=== PATIENT | male | born 1940 | race Caucasian/White ===

== ENCOUNTER 2018-08-07 08:28 | Emergency (ER) | payer MEDICARE, OTHER ==
[2018-08-07 08:47] VITALS: RESP 18; TEMP 96.8; O2SAT 99
[2018-08-07] MEDS ORDERED: LIDOCAINE HCL 2% MPF 10 ML SOL SC ONE (09:01)
[2018-08-07] MEDS ORDERED: LIDOCAINE HCL 2% MPF 10 ML SOL ONE (09:06)
[2018-08-07] MEDS ORDERED: BACITRACIN 500 U/GM OIN TOP ONE ×2 (09:43→10:00)
[2018-08-07] MEDS ORDERED: TDAP VACCINE 0.5 ML SUS IM ONE ×2 (10:34→10:35)
[2018-08-07 10:43] VITALS: BP 100/66; PULSE 76
== END 2018-08-07 11:00 | DRG 605 ==
LOC: ED 08:28
DX: S01.81XA Laceration without foreign body of other part of head, initial encounter (principal); W19.XXXA Unspecified fall, initial encounter; F03.90 Unspecified dementia, unspecified severity, without behavioral disturbance, psychotic disturbance, mood disturbance, and anxiety; I48.91 Unspecified atrial fibrillation; I50.9 Heart failure, unspecified
CPT/HCPCS: 12013; 70450; 90471; 90715; 99285; A6402; A9270-GY